=== PATIENT | female | born 1970 | race African-American/Black ===

== ENCOUNTER 2022-04-08 15:17 | Emergency (ER) | payer MEDICARE, MEDICAID, SELFPAY ==
--- NOTE | 2022-04-08 15:20 | ED.EYEPROB ---
HPI - Eye Problem General Chief complaint: Head Injury Stated complaint: Fell and bump on head/eye Time Seen by Provider: 04/08/22 15:20 Source: patient and RN notes reviewed History of Present Illness HPI Narrative: Patient is a 52-year-old female who presents the urgent care with complaints of a busted blood vessel on the left eye and a bump on her head. Patient states she hit her head on a steel door frame 3 days ago after tripping over her own foot. Patient states that her was concerned and forced her to be evaluated. Patient does not have any personal concerns. Denies of any headaches, vision change, nausea, vomiting, weakness or fatigue since the incident. Patient states she does see an small arms repairer. No other acute complaints. No acute distress noted. Patient aware of the plan of care. Some parts of this dictation were generated by voice recognition software and may contain typographical and/or grammatical inaccuracies. Related Data Home Medications Medication Instructions Recorded Confirmed aspirin 81 mg tablet,delayed 81 mg PO DAILY 04/08/22 04/08/22 release ferrous sulfate 325 mg (65 mg 325 mg PO DAILY 04/08/22 04/08/22 iron) tablet (FeroSul) gabapentin 300 mg capsule 300 mg PO TID 04/08/22 04/08/22 hydroxychloroquine 200 mg tablet 200 mg PO BID 04/08/22 04/08/22 metoprolol tartrate 100 mg tablet 100 mg PO BID 04/08/22 04/08/22 Allergies Allergy/AdvReac Type Severity Reaction Status Date / Time amoxicillin Allergy Mild Rash Unverified 04/08/22 15:40 Sulfa (Sulfonamide Allergy Mild Rash Unverified 04/08/22 15:40 Antibiotics) Penicillins Allergy Unknown Rash Verified 04/08/22 15:40 Review of Systems Review of Systems: CONSTITUTIONAL: Denies fever, chills, or sweats. EYES: Reports of a busted blood vessel to the left eye ENT: Denies rhinorrhea, congestion, sore throat, or otalgia. CARDIOVASCULAR: Denies chest pain, palpitations, or edema. RESPIRATORY: Denies cough or dyspnea. GASTROINTESTINAL: Denies abdominal pain, nausea, vomiting, or diarrhea. GENITOURINARY: Denies dysuria or hematuria. SKIN: Denies rash or itching. MUSCULOSKELETAL: Denies back pain, joint pain, or myalgia. NEUROLOGIC: Denies headache, numbness, or weakness. All other systems reviewed are negative, except as documented in HPI. PMFSH Comments At the time of my signature, I reviewed and agree with the nursing past medical, surgical, social, and family history. There is no relevant family history pertinent to the patient complaint. Exam Narrative: GENERAL: This is a well-nourished, well-developed patient, in no apparent distress. HEAD: normocephalic, atraumatic. 2 x 2 centimeter tender hematoma to the left forehead without ecchymosis or erythema EYES: PERRL. Right sclera clear/white. Vision is grossly intact. Erythemic subconjunctival hemorrhage noted to the lateral aspect of the left eye EARS: External ears normal NOSE: External nose normal with no obvious nasal discharge, nares without redness, no rhinorrhea. THROAT: Mucous membranes moist NECK: Neck supple CARDIOVASCULAR: Regular rate and rhythm without murmurs, gallops, or rubs. RESPIRATORY: Clear to auscultation. Breath sounds equal bilaterally. No wheezes, rales, or rhonchi. SKIN: warm, intact with no suspicious lesions or rash, good texture and turgor. NEURO: awake, alert, and oriented to person, place and time. There were no obvious focal neurologic abnormalities. EXTREMITIES: No clubbing, cyanosis, or edema. Course Course Level of Care: Express Care Visit Vital Signs Vital signs: Vital Signs Temperature 98.0 F 04/08/22 15:43 Pulse Rate 58 L 04/08/22 15:43 Respiratory Rate 16 04/08/22 15:43 Blood Pressure 135/80 04/08/22 15:43 Pulse Oximetry 100 04/08/22 15:43 Oxygen Delivery Room Air 04/08/22 15:43 Temperature 98.0 F 04/08/22 15:43 Pulse Rate 58 L 04/08/22 15:43 Respiratory Rate 16 04/08/22 15:43 Blood Pressure 135/8
[2022-04-08 15:43] VITALS: BP 135/80; PULSE 58; RESP 16; TEMP 36.7; O2SAT 100
== END 2022-04-08 15:57 | disposition home or self-care (01) ==
PROVIDERS: Emergency Provider Nurse Practitioner Family
DX: H11.32 Conjunctival hemorrhage, left eye (principal); S09.90XA Unspecified injury of head, initial encounter; W01.0XXA Fall on same level from slipping, tripping and stumbling without subsequent striking against object, initial encounter; I10 Essential (primary) hypertension
CPT/HCPCS: 99203; G0463

== ENCOUNTER 2022-07-24 17:05 | Emergency (ER) | payer MEDICARE, MEDICAID, SELFPAY ==
[2022-07-24 17:11] VITALS: BP 173/97; PULSE 75; RESP 16; TEMP 37.6; O2SAT 100
--- NOTE | 2022-07-24 17:12 | ED.SKABFB ---
HPI - Skin/Abscess/Foreign Bdy General Chief complaint: Skin/Abscess/Foreign Body Stated complaint: Rash Time Seen by Provider: 07/24/22 17:12 Source: patient and RN notes reviewed History of Present Illness HPI narrative: Patient is a 52-year-old female who presents to urgent care with complaints of facial swelling and hives. Patient states that she had shoulder surgery yesterday on her right arm and was given Ancef. Patient told them that she was allergic to Ancef and they gave her steroids and Benadryl with her surgery. Patient states the swelling started yesterday and seems to have worsened. Patient has tried to get hold of her surgeon and may have ?been giving her the runaround?. Patient states they advised her to take for Benadryl and when she did. Patient states that does not seem to be improving. Denies any difficulty breathing, wheezing or shortness of breath. No other acute complaints. No acute distress noted. Patient aware of the plan of care. Some parts of this dictation were generated by voice recognition software and may contain typographical and/or grammatical inaccuracies. Related Data Home Medications Medication Instructions Recorded Confirmed aspirin 81 mg tablet,delayed 81 mg PO DAILY 04/08/22 07/24/22 release ferrous sulfate 325 mg (65 mg 325 mg PO DAILY 04/08/22 07/24/22 iron) tablet (FeroSul) gabapentin 300 mg capsule 300 mg PO TID 04/08/22 07/24/22 hydroxychloroquine 200 mg tablet 200 mg PO BID 04/08/22 07/24/22 metoprolol tartrate 100 mg tablet 100 mg PO BID 04/08/22 07/24/22 hydrocodone 5 mg-acetaminophen 325 See Rx Instructions .Route .COMPLEX 07/24/22 07/24/22 mg tablet ketorolac 10 mg tablet See Rx Instructions .Route .COMPLEX 07/24/22 07/24/22 Allergies Allergy/AdvReac Type Severity Reaction Status Date / Time amoxicillin Allergy Mild Rash Unverified 07/24/22 17:31 Sulfa (Sulfonamide Allergy Mild Rash Unverified 07/24/22 17:31 Antibiotics) Penicillins Allergy Unknown Rash Verified 07/24/22 17:31 Review of Systems Review of Systems: CONSTITUTIONAL: Denies fever, chills, or sweats. EYES: Denies visual changes, redness, or discharge. ENT: Denies rhinorrhea, congestion, sore throat, or otalgia. CARDIOVASCULAR: Denies chest pain, palpitations, or edema. RESPIRATORY: Denies cough or dyspnea. GASTROINTESTINAL: Denies abdominal pain, nausea, vomiting, or diarrhea. GENITOURINARY: Denies dysuria or hematuria. SKIN: Reports of itchy hives, facial swelling and irritation MUSCULOSKELETAL: Denies back pain, joint pain, or myalgia. NEUROLOGIC: Denies headache, numbness, or weakness. All other systems reviewed are negative, except as documented in HPI. PMFSH Comments At the time of my signature, I reviewed and agree with the nursing past medical, surgical, social, and family history. There is no relevant family history pertinent to the patient complaint. Exam Narrative: GENERAL: This is a well-nourished, well-developed patient, in no apparent distress. HEAD: normocephalic, atraumatic. Mild facial edema EYES: PERRL. Sclera clear/white. Vision is grossly intact. Mild edema noted around the right eye affecting the right upper and lower eyelid EARS: External ears normal, auditory canals clear and without drainage, TMs normal without perforation. Hearing grossly intact. NOSE: External nose normal with no obvious nasal discharge, nares without redness, no rhinorrhea. THROAT: Mucous membranes moist, posterior pharynx clear. Patent oropharynx NECK: Neck supple, non-tender without lymphadenopathy CARDIOVASCULAR: Regular rate and rhythm without murmurs, gallops, or rubs. RESPIRATORY: Clear to auscultation. Breath sounds equal bilaterally. No wheezes, rales, or rhonchi. SKIN: warm, intact with no suspicious lesions or rash, good texture and turgor. NEURO: awake, alert, and oriented to person, place and time. There were no obvious focal neurologic abnormalities. EXTREMITIES: No clubbing, cyanosis, or
[2022-07-24] MEDS: predniSONE 20 MG TABLET 60 MG PO (17:50)
== END 2022-07-24 17:50 | disposition home or self-care (01) ==
PROVIDERS: Emergency Provider Nurse Practitioner Family
DX: L27.0 Generalized skin eruption due to drugs and medicaments taken internally (principal); T36.1X5A Adverse effect of cephalosporins and other beta-lactam antibiotics, initial encounter; Z79.82 Long term (current) use of aspirin; I10 Essential (primary) hypertension; M32.9 Systemic lupus erythematosus, unspecified
CPT/HCPCS: 99213; G0463; J7512

== ENCOUNTER 2022-08-21 07:01 | Outpatient (CLI) | payer MEDICARE, MEDICAID, SELFPAY ==
--- NOTE | ~2022-08-21 | MR_ITS ---
MRI of the cervical spine Clinical History: Cervical radiculopathy Technique: Axial T2-weighted and gradient images, and sagittal T1-weighted, T2-weighted, and STIR elayne ges were acquired. Findings: There is mild reversal normal cervical lordosis. No fracture or subluxation evident. No kat picious bone marrow signal abnormality identified. At C2-C3, there is no disc bulge or herniation. No spinal canal stenosis, cord compression, or neural foraminal narrowing. At C3-C4, there is minimal disc osteophyte complex. No spinal canal stenosis, cord compression, or ne ural foraminal narrowing. At C4-C5, there is no disc bulge or herniation. No spinal canal stenosis, cord compression, or neural foraminal narrowing. At C5-C6, there is a broad-based disc protrusion left paracentral region, with a probable focal disc extrusion at the right paracentral region. Findings result in moderate canal stenosis and cord compre ssion at this level. Bilateral neural foramina are preserved. At C6-C7, there is left paracentral to left foraminal disc protrusion, which may impinge the exiting left-sided nerve root. No isela cord compression. There is probable mild canal stenosis. Right neural foramen preserved. Paravertebral soft tissues are unremarkable. Impression: Left paracentral disc protrusion and right paracentral disc extrusion at C5-C6, which result in moder ate canal stenosis and cord compression at this level. Left paracentral to left foraminal disc protrusion at C6-C7, which probably narrows the left neural f oramen and impinges the exiting left-sided nerve root. Reviewed, dictated and finalized at [facility]– [place]. [employer] Impression: Left paracentral disc protrusion and right paracentral disc extrusion at C5-C6, which result in moderate canal stenosis and cord compression at this level. Left paracentral to left foraminal disc protrusion at C6-C7, which probably nando rows the left neural foramen and impinges the exiting left-sided nerve root.
== END 2022-08-21 07:02 | disposition home or self-care (01) ==
LOC: ANHIMG 07:03
DX: M54.12 Radiculopathy, cervical region (principal); M50.222 Other cervical disc displacement at C5-C6 level
CPT/HCPCS: 72141

== ENCOUNTER 2023-01-16 11:47 | Emergency (ER) | payer MEDICARE, MEDICAID, SELFPAY ==
--- NOTE | ~2023-01-16 | XR_ITS ---
EXAMINATION: XR knee RT min 4V DATE: 01/16/2023 12:18 INDICATION: Right knee pain. Fall. TECHNIQUE: 4 views of right knee were obtained. COMPARISON: None. FINDINGS: There is a fracture of lateral femoral condyle involving the articular surface with up to 2 mm depression. Osteopenia is noted. There is mild osteoarthritis of medial and lateral compartments. There is a small knee joint effusion. IMPRESSION: 1. Fracture of lateral femoral condyle involving the articular surface. 2. Mild right knee osteoarthritis. 3. Small knee joint effusion. Reviewed, dictated and finalized at location A.
[2023-01-16 11:56] VITALS: BP 146/92; PULSE 97; RESP 16; TEMP 36.2; O2SAT 100
[2023-01-16 12:07] VITALS: BP 146/92; PULSE 97; RESP 16; TEMP 36.2; O2SAT 100
--- NOTE | 2023-01-16 12:07 | ED.LOWEXIN ---
HPI - Extremity Injury (Lower) General Chief Complaint: Extremity Injury, Lower Stated Complaint: Right knee pain Time Seen by Provider: 01/16/23 12:07 Source: patient Mode of arrival: ambulatory Limitations: no limitations History of Present Illness HPI Narrative: 52 yo F presents with c/o pain and swelling to R knee. Two days ago pt tripped down stairs and twisted R knee. Also states hit lateral aspect of R knee on concrete. Did not hit head, denies LOC. Ambulatory with slight limp and cane. Hx of lupus. Pt states bones bad from lupus . All systems reviewed and negative except as noted above. Related Data Home Medications Medication Instructions Recorded Confirmed aspirin 81 mg tablet,delayed 81 mg PO DAILY 04/08/22 01/16/23 release ferrous sulfate 325 mg (65 mg 325 mg PO DAILY 04/08/22 01/16/23 iron) tablet (FeroSul) gabapentin 300 mg capsule 300 mg PO TID 04/08/22 01/16/23 hydroxychloroquine 200 mg tablet 200 mg PO BID 04/08/22 01/16/23 metoprolol tartrate 100 mg tablet 100 mg PO BID 04/08/22 01/16/23 hydrocodone 5 mg-acetaminophen 325 See Rx Instructions .Route .COMPLEX 07/24/22 01/16/23 mg tablet ketorolac 10 mg tablet See Rx Instructions .Route .COMPLEX 07/24/22 01/16/23 Allergies Allergy/AdvReac Type Severity Reaction Status Date / Time amoxicillin Allergy Mild Rash Verified 01/16/23 11:59 Sulfa (Sulfonamide Allergy Mild Rash Verified 01/16/23 11:59 Antibiotics) Penicillins Allergy Unknown Rash Verified 01/16/23 11:59 cefazolin [From [facility]] Allergy Rash Verified 01/16/23 11:59 Tetracyclines Allergy Rash Verified 01/16/23 11:59 vancomycin Allergy Rash Verified 01/16/23 11:59 Review of Systems Review of Systems: CONSTITUTIONAL: Denies fever, chills, or sweats. EYES: Denies visual changes, redness, or discharge. ENT: Denies rhinorrhea, congestion, sore throat, or otalgia. CARDIOVASCULAR: Denies chest pain, palpitations, or edema. RESPIRATORY: Denies cough or dyspnea. GASTROINTESTINAL: Denies abdominal pain, nausea, vomiting, or diarrhea. GENITOURINARY: Denies dysuria or hematuria. SKIN: Denies rash or itching. MUSCULOSKELETAL: Denies back pain, or myalgia. Reports right knee pain and swelling. NEUROLOGIC: Denies headache, numbness, or weakness. PSYCHIATRIC: Denies anxiety or depression. All other systems reviewed are negative, except as documented in HPI. PMFSH Comments At time of signature, agree with nursing past medical, surgical, social and family history. There is no relevant family history pertinent to the presenting complaint. Exam Narrative: GENERAL: This is a well-nourished, well-developed patient, in no apparent distress. HEAD: normocephalic, atraumatic. EYES: PERRL. Sclera clear/white. Vision is grossly intact. EARS: External ears normal NOSE: External nose normal NECK: Neck supple, non-tender without lymphadenopathy, masses or thyromegaly. CARDIOVASCULAR: Regular rate and rhythm without murmurs, gallops, or rubs. RESPIRATORY: Clear to auscultation. Breath sounds equal bilaterally. No wheezes, rales, or rhonchi. SKIN: warm, Dry, intact with no suspicious lesions or rash, good texture and turgor. NEURO: awake, alert, and oriented to person, place and time. There were no obvious focal neurologic abnormalities. EXTREMITIES: tenderness to lateral aspect R knee with swelling noted. full ROM to R knee Course Course Level of Care: Express Care Visit Vital Signs Vital signs: Vital Signs Temperature 36.2 C L 01/16/23 11:56 Pulse Rate 97 01/16/23 11:56 Respiratory Rate 16 01/16/23 11:56 Blood Pressure 146/92 H 01/16/23 11:56 Pulse Oximetry 100 01/16/23 11:56 Oxygen Delivery Room Air 01/16/23 11:56 Temperature 36.2 C L 01/16/23 11:56 Pulse Rate 97 01/16/23 11:56 Respiratory Rate 16 01/16/23 11:56 Blood Pressure 146/92 H 01/16/23 11:56 Pulse Oximetry 100 01/16/23 11:56 Oxygen Delivery Room Air 01/16/23 11:56 reviewed
== END 2023-01-16 12:50 | disposition home or self-care (01) ==
PROVIDERS: Emergency Provider Nurse Practitioner Family
DX: S72.421A Displaced fracture of lateral condyle of right femur, initial encounter for closed fracture (principal); W10.9XXA Fall (on) (from) unspecified stairs and steps, initial encounter; Z79.82 Long term (current) use of aspirin; I10 Essential (primary) hypertension; M32.9 Systemic lupus erythematosus, unspecified
CPT/HCPCS: 73564; 99214; G0463; L1830

== ENCOUNTER 2023-03-20 16:41 | Emergency (ER) | payer MEDICARE, MEDICAID, SELFPAY ==
[2023-03-20 16:51] VITALS: BP 150/106; PULSE 81; RESP 16; TEMP 37.7; O2SAT 100
[2023-03-20 16:55] VITALS: BP 150/106; PULSE 81; RESP 16; TEMP 37.7; O2SAT 100
--- NOTE | 2023-03-20 17:06 | ED.GENADULT ---
HPI - General Adult General Chief complaint: Skin/Abscess/Foreign Body Stated complaint: Facial Swelling Source: patient, family and RN notes reviewed History of Present Illness HPI narrative: 52 yo F with hx of Lupus, presents to urgent care with complaints of periorbital swelling since Friday and pain in her upper back that started yesterday. Pt states the pain started yesterday but worsened today. Pt states she had cervical spine surgery on Friday. Denies any fevers, chills, chest pain, oral swelling, or vomiting. Pt did take Benadryl on Friday. Related Data Home Medications Medication Instructions Recorded Confirmed aspirin 81 mg tablet,delayed 81 mg PO DAILY 04/08/22 03/20/23 release ferrous sulfate 325 mg (65 mg 325 mg PO DAILY 04/08/22 03/20/23 iron) tablet (FeroSul) hydroxychloroquine 200 mg tablet 200 mg PO BID 04/08/22 03/20/23 metoprolol tartrate 100 mg tablet 100 mg PO BID 04/08/22 03/20/23 hydrocodone 5 mg-acetaminophen 325 See Rx Instructions .Route .COMPLEX 07/24/22 03/20/23 mg tablet ketorolac 10 mg tablet See Rx Instructions .Route .COMPLEX 07/24/22 01/16/23 ibuprofen 800 mg tablet mg 03/20/23 losartan 25 mg tablet mg 03/20/23 prednisone 1 mg tablet 3 mg PO DAILY 03/20/23 03/20/23 rosuvastatin 10 mg tablet mg 03/20/23 Allergies Allergy/AdvReac Type Severity Reaction Status Date / Time amoxicillin Allergy Mild Rash Verified 01/16/23 11:59 Sulfa (Sulfonamide Allergy Mild Rash Verified 01/16/23 11:59 Antibiotics) Penicillins Allergy Unknown Rash Verified 01/16/23 11:59 cefazolin [From Ancef] Allergy Rash Verified 01/16/23 11:59 Tetracyclines Allergy Rash Verified 01/16/23 11:59 vancomycin Allergy Rash Verified 01/16/23 11:59 Review of Systems Review of Systems: Pertinent positives and pertinent negatives per HPI. PMFSH Comments At the time of my signature, I reviewed and agree with the nursing past medical, surgical, social, and family history. There is no relevant family history pertinent to the patient complaint. Exam Narrative: GENERAL: This is a well-nourished, well-developed patient, in no apparent distress. HEAD: normocephalic, atraumatic. EYES: Sclera clear/white. Bilateral periorbital edema noted. EARS: External ears normal, auditory canals clear and without drainage. Hearing grossly intact. NOSE: External nose normal with no obvious nasal discharge, nares without redness, no rhinorrhea. THROAT: Mucous membranes moist, posterior pharynx clear. NECK: Neck supple, non-tender without lymphadenopathy, masses or thyromegaly. CARDIOVASCULAR: Regular rate and rhythm without murmurs, gallops, or rubs. RESPIRATORY: Clear to auscultation. Breath sounds equal bilaterally. No wheezes, rales, or rhonchi. GASTROINTESTINAL: Abdomen soft, non-tender, nondistended. Bowel sounds are active. No hepato-splenomegaly, or palpable masses. No guarding. SKIN: warm, intact with no suspicious lesions or rash, good texture and turgor. NEURO: awake, alert, and oriented to person, place and time. There were no obvious focal neurologic abnormalities. EXTREMITIES: No clubbing, cyanosis, or edema. No joint tenderness, effusion, or edema noted. BACK: Tenderness noted to upper mid/left sided thoracic back Course Course Level of Care: Express Care Visit Vital Signs Vital signs: Vital Signs Temperature 99.8 F H 03/20/23 16:51 Pulse Rate 81 03/20/23 16:51 Respiratory Rate 16 03/20/23 16:51 Blood Pressure 150/106 H 03/20/23 16:51 Pulse Oximetry 100 03/20/23 16:51 Oxygen Delivery Room Air 03/20/23 16:51 Temperature 99.8 F H 03/20/23 16:55 Pulse Rate 81 03/20/23 16:55 Respiratory Rate 16 03/20/23 16:55 Blood Pressure 150/106 H 03/20/23 16:55 Pulse Oximetry 100 03/20/23 16:55 Oxygen Delivery Room Air 03/20/23 16:55 reviewed Medical Decision Making MDM Narrative Medical decision making narrative: Discussed with pt and visitor the reasoning behind ER e
== END 2023-03-20 17:11 | disposition short-term general hospital (02) ==
PROVIDERS: Emergency Provider Nurse Practitioner Family
DX: H05.223 Edema of bilateral orbit (principal); R07.1 Chest pain on breathing; Z79.82 Long term (current) use of aspirin; Z79.899 Other long term (current) drug therapy; Z79.1 Long term (current) use of non-steroidal anti-inflammatories (NSAID)
CPT/HCPCS: 99212; G0463

== ENCOUNTER 2023-03-31 08:20 | Outpatient (CLI) | payer MEDICARE, MEDICAID, SELFPAY ==
--- NOTE | ~2023-03-31 | CT_ITS ---
EXAMINATION:CT diagnostic chest wo con DATE: 03/31/2023 08:46 INDICATION: Subacute cough. Systemic lupus erythematosus. TECHNIQUE: Computed tomography (CT) of the chest was performed without intravenous contrast. Automate d exposure control and iterative reconstruction technique were employed. The dose-length product (DLP ) was 138.44 mGy-cm. COMPARISON: Chest 2 views 04/02/2013 FINDINGS: There is mild atelectasis bilaterally. There is mild scarring in right upper lobe and right lower lobe with pneumatoceles. No pleural effusion. There are changes of anterior fusion procedure i n cervical spine. There are bilateral shoulder arthroplasties. The heart size is normal. There are co ronary artery calcifications. No pericardial effusion. There are changes of cholecystectomy. IMPRESSION: 1. Mild scarring in right upper lobe and right lower lobe with pneumatoceles. Reviewed, dictated and finalized at location E.
== END 2023-03-31 08:21 | disposition home or self-care (01) ==
DX: R05.2 Subacute cough (principal); M32.9 Systemic lupus erythematosus, unspecified
CPT/HCPCS: 71250